=== PATIENT | male | born 1990 | race African-American/Black ===

== ENCOUNTER 2017-12-12 22:39 | Emergency (ER) | payer SELFPAY ==
[2017-12-13] MEDS: IBUPROFEN 400 MG TAB PO (02:35)
== END 2017-12-13 02:36 | disposition home or self-care (01) ==
LOC: NEPE 22:39
DX: S16.1XXA Strain of muscle, fascia and tendon at neck level, initial encounter (principal); F17.290 Nicotine dependence, other tobacco product, uncomplicated
CPT/HCPCS: 87081; 87880; 99283